=== PATIENT | female | born 1930 | race Caucasian/White ===

== ENCOUNTER 2020-03-29 20:15 | Emergency (ER) | payer MEDICARE, OTHER ==
[~2020-03-29] VITALS: Ht 157.5 cm; Wt 66.0 kg
[2020-03-29] MEDS ORDERED: XANAX0.5 MG PO (20:33)
[2020-03-29 21:03] LABS: HEMATOCRIT 39.4 % (37.0-47.0); HEMOGLOBIN 12.8 g/dl (12.0-16.0); IMMATURE GRANULOCYTES 0.6 % (0.0-5.0); MEAN CELL VOLUME 94.3 fL CALC (80.0-100.0); MEAN CORPUSCULAR HGB 30.6 pG CALC (26.0-32.0); MEAN CORPUSCULAR HGB CONC 32.5 g/dL CAL (32.0-36.0); NEUT# 6.02 thou/uL (2.00-7.15); RED BLOOD COUNT 4.18 mill/uL (4.20-5.60); RED CELL DISTRI WIDTH 13.2 % (11.5-15.5)
[2020-03-29 21:21] LABS: ALBUMIN 4.2 g/dL (3.2-5.0); ALKALINE PHOSPHATASE 64 u/l (38-126); ANION GAP 12 (6-22 (CALC)); BILIRUBIN, TOTAL 0.9 mg/dL (0.0-1.4); BUN 15 mg/dL (8-23); BUN/CREATININE RATIO 20 (12-20 (CALC)); CARBON DIOXIDE 26 mmol/l (22-30); CHLORIDE 106 mmol/l (95-108); CREATININE 0.8 mg/dL (0.5-1.0); GFR > 60 ML/MIN (>=60 (CALC)); GFR FOR AFR.AMER. > 60 ML/MIN (>=60 (CALC)); POTASSIUM 4.4 mmol/l (3.5-5.1); SGOT/AST 22 u/l (9-36); SODIUM 140 mmol/l (137-146); TOTAL PROTEIN 7.2 g/dL (6.3-8.2)
[2020-03-29 23:22] VITALS: BP 128/62
[2020-03-29] MEDS ORDERED: AMOXICILLIN500 MG PO (23:39)
== END 2020-03-29 23:51 | disposition home or self-care (01) ==
LOC: ED 20:15
PROVIDERS: Emergency Medicine
DX: R07.0 Pain in throat (principal)
CPT/HCPCS: Q9967

== ENCOUNTER 2020-07-26 14:45 | Observation (INO) | payer MEDICARE, OTHER ==
[~2020-07-26] VITALS: Ht 157.5 cm; Wt 75.0 kg
[~2020-07-26 14:45] MED LIST: AMOXICILLIN500 MG PO; XANAX0.5 MG PO
--- NOTE | 2020-07-26 14:55 | NUR ---
PT TO ROOM PER EMS WITH IV SITE. PT GOT UP OFF OF EMS STRETCHER AND WALKED TO ER STRETCHER, ALERT/ORIENTED X1, ONLY COMPLAINT IS RIGHT SHOULDER PAIN.
--- NOTE | 2020-07-26 14:56 | NUR ---
PT DENIES TAKING ANY MEDICATIONS EXCEPT XANAX, PARAMEDICS STATES THAT THE DAUGHTER STATED THAT WAS ALL SHE WAS ON
[2020-07-26 15:08] LABS: IMMATURE GRANULOCYTES 0.8 % (0.0-5.0); MEAN CELL VOLUME 96.2 fL CALC (80.0-100.0); MEAN CORPUSCULAR HGB 32.3 pG CALC (26.0-32.0); MEAN CORPUSCULAR HGB CONC 33.5 g/dL CAL (32.0-36.0); NEUT# 8.6 thou/uL (2.00-7.15); RED BLOOD COUNT 3.41 mill/uL (4.20-5.60); RED CELL DISTRI WIDTH 12.1 % (11.5-15.5)
[2020-07-26 15:09] LABS: HEMATOCRIT 32.8 % (37.0-47.0)
[2020-07-26 15:22] LABS: ALBUMIN 3.7 g/dL (3.2-5.0); ALKALINE PHOSPHATASE 55 u/l (38-126); AMYLASE 110 u/l (30-110); BILIRUBIN, TOTAL 1.2 mg/dL (0.0-1.4); BUN 15 mg/dL (8-23); BUN/CREATININE RATIO 21 (12-20 (CALC)); CARBON DIOXIDE 29 mmol/l (22-30); CREATININE 0.7 mg/dL (0.5-1.0); GFR > 60 ML/MIN (>=60 (CALC)); GFR FOR AFR.AMER. > 60 ML/MIN (>=60 (CALC)); LIPASE 65 u/l (23-300); POTASSIUM 4.2 mmol/l (3.5-5.1); SGOT/AST 22 u/l (9-36); TOTAL PROTEIN 6.5 g/dL (6.3-8.2)
[2020-07-26 15:26] LABS: ANION GAP 8 (6-22 (CALC)); CHLORIDE 91 mmol/l (95-108); SODIUM 124 mmol/l (137-146)
[2020-07-26 15:30] LABS: MYOGLOBIN 52 ng/mL (0 - 62)
--- NOTE | 2020-07-26 16:30 | NUR ---
ASSIST MD AT BEDSIDE FOR RECTAL EXAM.
--- NOTE | 2020-07-26 16:35 | NUR ---
COVID SWAB COLLECTED, ISOLATION PRECAUTIONS INITIATED.
[2020-07-26 17:20] LABS: URINE BILIRUBIN - DIPSTICK NEGATIVE (NEGATIVE); URINE BLOOD DIPSTICK NEGATIVE (NEGATIVE); URINE COLOR YELLOW; URINE GLUCOSE - DIPSTICK NEGATIVE (NEGATIVE); URINE KETONE NEGATIVE (NEGATIVE); URINE LEUK ESTERASE NEGATIVE (NEGATIVE); URINE PH 6.5 (4.5-8.0); URINE PROTEIN - DIPSTICK NEGATIVE (NEG-TRACE); URINE SPECIFIC GRAVITY 1.015; URINE UROBILINOGEN - DIPSTICK 0.2 E.U./dL (0.2)
[2020-07-26 17:24] LABS: URINE NITRITE - DIPSTICK NEGATIVE (Negative)
--- NOTE | 2020-07-26 17:56 | NUR ---
MD AT BEDSIDE TO DISCUSS RESULTS AND POC.
--- NOTE | 2020-07-26 18:50 | NUR ---
PHONE CALL TO MED SURG TO GIVE REPORT FOR ADMIT. ELIZABET DURAN WILL CALL BACK FOR REPORT.
--- NOTE | 2020-07-26 19:02 | NUR ---
REPORT CALLED TO RENEE ALEXANDER.
--- NOTE | 2020-07-26 19:13 | NUR ---
TO MED SURG VIA STRETCHER, TELE MONITOR IN PLACE.
--- NOTE | 2020-07-26 19:29 | NUR ---
PT RECEIVED FROM ED TO ROOM 270. ARRIVES VIA STRETCHER ACCOMPANIED BY LYNDA ALEXANDER. PT AMBULATORY TO BED. GAIT UNSTEADY. PT DENIES PAIN AT THIS TIME. ORIENTED TO UNIT, ROOM, CALL HERNANDEZ, LIGHTS, TV. ICE WATER PROVIDED. CALL HERNANDEZ WITHIN REACH. AGREES TO CALL PRN.
[2020-07-26 19:33] VITALS: BP 165/79
--- NOTE | 2020-07-26 20:12 | NUR ---
PHYSICAL ASSESMENT COMPLETE. PT C/O OF LOWER BACK PAIN. SCHEDULED MEDICATIONS AND PRN MEDICATION ADMINISTERED, SEE E-MAR. PT DENIES ANY NEEDS AT THIS TIME. PLAN OF CARE REVIEWED, PT DENIES QUESTIONS, VERBALIZES UNDERSTANDING. ITEMS WITHIN REACH, BED LOCKED IN LOW POSITION W/ BEDRAILS UP X2. CALL HERNANDEZ WITHIN REACH, AGREES TO CALL PRN.
[2020-07-27] VITALS: BP 109/53
--- NOTE | 2020-07-27 00:12 | NUR ---
PT LAYING IN BED WITH EYES CLOSED, APPEARS TO BE SLEEPING, APPEARS COMFORTABLE AND IN NO DISTRESS. RESPIRATIONS REGULAR AND UNLABORED. ITEMS REMAIN WITHIN REACH, CALL HERNANDEZ REMAINS WITHIN REACH. BED REMAINS LOCKED AND IN LOW POSITION WITH BEDRAILS UP X2. WILL CONTINUE TO MONITOR.
[2020-07-27 04:00] VITALS: BP 110/54
--- NOTE | 2020-07-27 04:11 | NUR ---
PT RESTING IN BED, NO SIGNS OF DISTRESS NOTED, RESP EVEN AND UNLABORED. PT VOICES NO NEEDS OR COMPLAINTS AT THIS TIME. CALL LIGHT IN REACH, CONTINUE TO MONITOR.
[2020-07-27 05:56] LABS: HEMATOCRIT 33.3 % (37.0-47.0); HEMOGLOBIN 10.9 g/dl (12.0-16.0); IMMATURE GRANULOCYTES 0.5 % (0.0-5.0); MEAN CELL VOLUME 97.1 fL CALC (80.0-100.0); MEAN CORPUSCULAR HGB 31.8 pG CALC (26.0-32.0); MEAN CORPUSCULAR HGB CONC 32.7 g/dL CAL (32.0-36.0); NEUT# 3.97 thou/uL (2.00-7.15); RED BLOOD COUNT 3.43 mill/uL (4.20-5.60); RED CELL DISTRI WIDTH 12.5 % (11.5-15.5)
[2020-07-27 06:19] LABS: ALBUMIN 3.4 g/dL (3.2-5.0); ALKALINE PHOSPHATASE 49 u/l (38-126); BILIRUBIN, TOTAL 1.3 mg/dL (0.0-1.4); BUN 12 mg/dL (8-23); BUN/CREATININE RATIO 16 (12-20 (CALC)); CARBON DIOXIDE 26 mmol/l (22-30); CREATININE 0.8 mg/dL (0.5-1.0); GFR > 60 ML/MIN (>=60 (CALC)); GFR FOR AFR.AMER. > 60 ML/MIN (>=60 (CALC)); POTASSIUM 4.2 mmol/l (3.5-5.1); SGOT/AST 21 u/l (9-36); TOTAL PROTEIN 6.2 g/dL (6.3-8.2)
[2020-07-27 06:20] LABS: ANION GAP 9 (6-22 (CALC)); CHLORIDE 106 mmol/l (95-108); SODIUM 137 mmol/l (137-146)
[2020-07-27 07:00] VITALS: BP 149/65
--- NOTE | 2020-07-27 07:00 | NUR ---
RECIEVED REPORT FROM BENJAMIN DURAN
--- NOTE | 2020-07-27 07:25 | NUR ---
PT RESTING IN SEMI FOWLERS POSITIONS. PT IS A/O TO SELF. ASSESSMENT AND VITALS COMPLETED. BP 146/65, HR 76, O2 100% ON ROOM AIR. RESPIRATIONS ARE EVEN AND UNLABORED WITH NO DISTRESS NOTED. LUNG SOUNDS ARE CLEAR. HEART RHYTHM IS NORMAL WITH TELE IN PLACE. #18G IN LFA INFUSING WITH IVF PER ORDER, SITE REMAINS HEALTHY AND PATENT. SKIN IS WARM AND INTACT. SCATTERED BRUISING NOTED THROUGHOUT. PT COMPLAINS OF 9/10 RIGHT SHOULDER PAIN, TYLENOL ADMINISTERED. PT REPOSITIONED IN BED FOR BREAKFAST. PT DENIES OF ANY OTHER NEEDS OR DISCOMFORTS AT THIS TIME. ALL SAEFTY PRECAUTIONS ARE IN PLACE WITH CALL LIGHT IN REACH AND BED ALARM ACTIVATED. WILL CONTINUE TO MONITOR.
--- NOTE | 2020-07-27 08:50 | NUR ---
DR TOM PARRA,MATIAS AT BEDSIDE.
--- NOTE | 2020-07-27 09:10 | NUR ---
#18G IN LAC INFILTRATED, IV REMOVED WITH CATHATER STILL INTACT. NOTIFIED. NO NEED FOR NEW IV DUE TO BEING D/C
[2020-07-27] MEDS ORDERED: PANTOPRAZOLE SO40 M1 PO (10:20)
[2020-07-27] MEDS ORDERED: ZOFRAN4 MG/TAB PO (10:21)
[2020-07-27 11:19] VITALS: BP 154/80
--- NOTE | 2020-07-27 11:38 | NUR ---
DAUGHTER CALLED TO INFORM OF DC. DAUGHTER TO ARRIVED TO EXPLAIN D/C INSTRUCTIONS.
--- NOTE | 2020-07-27 11:53 | NUR ---
PT SITTING UP ON SIDE OF BED EATING LUNCH. RESPIRARIONS ARE EVEN AND UNLABORED WITH NO DISTRESS NOTED. WAITING FOR DAUGHTER TO ARRIVED FOR D/C. TELE MONITORING REMOVED, ER NOTIFIED. PT DENIES OF ANY NEEDS AT THIS TIME. ALL SAFETY PRECAUTIONS ARE IN PLACE WITH BED ALARM ACTIVATED. INSTRUCTED PT TO CALL WHEN NEEDING TO GET UP. PT ERBLAIZED UNDERSTANDING.
--- NOTE | 2020-07-27 12:05 | NUR ---
PT AND DAUGHTER EDUCATED ON DISCHARGE INSTRUCTIONS. BOTH VERBALIZED UNDERSTANDING.
--- NOTE | 2020-07-27 12:27 | NUR ---
Discharge instructions given. Patient verbalizes understanding of same. Discharged in stable condition via Wheelchair to Home with family. All belongings sent with pt. PT DISCHARGED HOME IN STABLE CONDITION ACCOMPAINED BY STAFF AND DAUGHTER. PT DISCHARGED WITH ALL DISCHARGE INSTRUCTIONS AND BELONGINGS.
== END 2020-07-27 12:28 | disposition home or self-care (01) ==
LOC: ED 14:45 → ED-I 15:12 → ED 15:12 → ED-I 17:45 → ED 17:57 → MS2 17:58
PROVIDERS: Emergency Medicine; ADMIT Internal Medicine; ATTEND Internal Medicine
DX: E87.1 Hypo-osmolality and hyponatremia (principal); R11.2 Nausea with vomiting, unspecified; F41.9 Anxiety disorder, unspecified; F03.90 Unspecified dementia, unspecified severity, without behavioral disturbance, psychotic disturbance, mood disturbance, and anxiety; Z20.822 Contact with and (suspected) exposure to COVID-19
CPT/HCPCS: G0378; J1650; S0164

== ENCOUNTER 2020-08-15 09:10 | Inpatient (IN) | payer MEDICARE, OTHER ==
[~2020-08-15 09:10] MED LIST changes: +PANTOPRAZOLE SO40 M1 PO; +ZOFRAN4 MG/TAB PO
--- NOTE | 2020-08-15 09:20 | NUR ---
AMS FOR PAST 2 DAYS AFTER FALL. PATIENT IMMEDICATELY TO ROOM THEN TO RADIOLOGY. MD AT BEDSIDE FOR EVAL
[2020-08-15 09:52] LABS: GFR > 60 ML/MIN (>=60 (CALC)); GFR FOR AFR.AMER. > 60 ML/MIN (>=60 (CALC))
[2020-08-15 09:56] LABS: HEMATOCRIT 29.8 % (37.0-47.0); HEMOGLOBIN 9.7 g/dl (12.0-16.0); IMMATURE GRANULOCYTES 1.5 % (0.0-5.0); MEAN CORPUSCULAR HGB 32.2 pG CALC (26.0-32.0); MEAN CORPUSCULAR HGB CONC 32.6 g/dL CAL (32.0-36.0); NEUT# 8.07 thou/uL (2.00-7.15); RED BLOOD COUNT 3.01 mill/uL (4.20-5.60); RED CELL DISTRI WIDTH 13.6 % (11.5-15.5)
--- NOTE | 2020-08-15 10:08 | NUR ---
ASKED PHARMACY FOR HELP WITH MMED RED
[2020-08-15 10:17] LABS: ALBUMIN 3.3 g/dL (3.2-5.0); ALKALINE PHOSPHATASE 60 u/l (38-126); ANION GAP 9 (6-22 (CALC)); BILIRUBIN, TOTAL 1.3 mg/dL (0.0-1.4); BUN 19 mg/dL (8-23); BUN/CREATININE RATIO 35 (12-20 (CALC)); CARBON DIOXIDE 31 mmol/l (22-30); CHLORIDE 97 mmol/l (95-108); CREATININE 0.5 mg/dL (0.5-1.0); GFR > 60 ML/MIN (>=60 (CALC)); GFR FOR AFR.AMER. > 60 ML/MIN (>=60 (CALC)); POTASSIUM 4.7 mmol/l (3.5-5.1); SGOT/AST 20 u/l (9-36); SODIUM 132 mmol/l (137-146); TOTAL PROTEIN 6.2 g/dL (6.3-8.2)
[2020-08-15] MEDS ORDERED: ALBUTEROL2.5 MG/0.1 IN (11:12)
[2020-08-15] MEDS ORDERED: PULMICORT0.5MG/2ML IN (11:13)
[2020-08-15] MEDS ORDERED: ASPIRIN CHEWABL81 MG PO (11:13)
[2020-08-15] MEDS ORDERED: DILTIAZEM CD180 MG PO (11:14)
[2020-08-15] MEDS ORDERED: DULCOLAX10 MG RE (11:15)
[2020-08-15] MEDS ORDERED: CORRECTOL100 MG PO (11:15)
--- NOTE | 2020-08-15 11:15 | NUR ---
COVID SWAB COLLECTED, ISOLATION PRECAUTIONS INITIATED.
[2020-08-15] MEDS ORDERED: LOVENOX40 MG/0.4 SC (11:16)
[2020-08-15] MEDS ORDERED: FLUOXETINE10 MG PO (11:16)
[2020-08-15] MEDS ORDERED: LOPRESSOR50 M2 PO (11:18)
[2020-08-15] MEDS ORDERED: MICONAZOLE23 TOP (11:19)
[2020-08-15] MEDS ORDERED: MILK OF MAGNESI1 SUS PO (11:20)
[2020-08-15] MEDS ORDERED: PEG 3350 PO (11:21)
[2020-08-15] MEDS ORDERED: TRAMADOL HYDROC50 MG PO (11:22)
[2020-08-15] MEDS ORDERED: TYLENOL325 M2 PO (11:24)
[2020-08-15] MEDS ORDERED: ONDANSETRON4 MG PO (11:24)
[2020-08-15] MEDS ORDERED: PROTONIX40 M2 PO (11:31)
[2020-08-15 12:13] LABS: URINE BILIRUBIN - DIPSTICK NEGATIVE (NEGATIVE); URINE BLOOD DIPSTICK NEGATIVE (NEGATIVE); URINE COLOR YELLOW; URINE GLUCOSE - DIPSTICK NEGATIVE (NEGATIVE); URINE KETONE NEGATIVE (NEGATIVE); URINE LEUK ESTERASE TRACE (NEGATIVE); URINE PROTEIN - DIPSTICK NEGATIVE (NEG-TRACE); URINE UROBILINOGEN - DIPSTICK 0.2 E.U./dL (0.2)
[2020-08-15 12:15] LABS: URINE NITRITE - DIPSTICK NEGATIVE (Negative)
--- NOTE | 2020-08-15 12:18 | NUR ---
RESTING QUIETLY ON STRETCHER, RESPS EVEN AND UNLABORED ON O2 VIA NC. ROLLE DRAINING CLEAR YELLOW URINE, LEG STRAP IN PLACE. #20 LFA INFUSING WITHOUT DIFFICULTY, SITE APPEARS HEALTHY WITHOUT REDNESS OR EDEMA.
--- NOTE | 2020-08-15 13:31 | NUR ---
MOUTH SWABBED FOR MOISTURE REPLACEMENT AND CLEANED FOOD PARTICLE, DAUGHTER AT THE BEDSIDE AND PATIENT ALERT AND REPORTS COMFORT
--- NOTE | 2020-08-15 15:30 | NUR ---
REPORT RECEIVED FROM BROCKRN
--- NOTE | 2020-08-15 15:31 | NUR ---
REPORT CALLED TO SANTO VIZCAINO
--- NOTE | 2020-08-15 15:45 | NUR ---
PT ARRIVED TO MED/SURG ROOM 260 IN STABLE CONDITION VIA STRETCHER ACCOMPANIED BY BROCKRN;PT ASSISTED BEDSIDE WITH X4 ASSIST;PT ALERT TO SELF ONLY, ATTEMPTS TO RE-ORIENT UNSUCCESSFUL;PT UNABLE TO ASSIST IN ASSESSMENT R/T COGNITIVE LIMITATION, MOST INFORMATION PROVIDED BY DAUGHTER TYREE. VS OBTAINED AND ASSESSMENT COMPLETED;PT REPORTS PAIN WITH MOVEMENT,PAIN SCALE AND REPORTING EDUCATED;RESPIRATIONS EVEN AND UNLABORED ON O2 @ 3L VIA NC;ABDOMEN DISTENDED/SOFT ON PALPATION AND HYPOACTIVE IN ALL 4 QUADRANTS,PT HAD SMALL PASTY/BROWN BM UPON ARRIVAL AND GERARDO CARE WAS PROVIDED;WEAK PEDAL PULSES;MUTILPLE BRUISES NOTED THROUGHOUT BODY AND HEMATOMA NOTED TO POSTERIOR RIGHT SCALP;DRESSING TO RIGHT HIP NOTED FROM HIP REPLACEMENT ON 08/04;ROLLE CATHETER PATENT DRAINING CLEAR/YELLOW URINE TO GRAVITY WITH EASE,ROLLE PLACED 08/12/20 PER FAMILY AT REHAB R/T RETENTION;TELE MONITORING IN PLACE;FALL AND ALLERGY BAND APPLIED;#20G TO LAC FLUSHED AND PATENT,SITE APPEARS HEALTHY; PT DENIES ANY ADDITIONAL NEEDS AT THIS TIME AND IS ENCOURAGED TO CALL FOR ASSISTANCE IF NEEDED;FALL PRECAUTIONS IN PLACE WITH BED IN THE LOWEST POSITION AND BED ALARM ON FOR SAFETY;CALL LIGHT IN REACH;WILL CONTINUE TO MONITOR
--- NOTE | 2020-08-15 15:45 | NUR ---
TO MED SURG VIA STRETCHER. TELE MONITOR IN PLACE.
[2020-08-15 16:07] VITALS: BP 164/57
--- NOTE | 2020-08-15 16:45 | NUR ---
DAUGHTER AT BEDSIDE
--- NOTE | 2020-08-15 17:20 | NUR ---
PT RESTING IN BED WITH DAUGHTER AT BEDSIDE.PT MEDICATED WITH PRN MIRLAX AND MOM AT THIS TIME TO ASSIST IN BOWEL CARE;PT DENIES ANY CURRENT PAIN OR DISCOMFORTS,PAIN SCALE AND REPORTING EDUCATED;TELE MONITORING IN PLACE;IV SITE PATENT;FALL PRECAUTIONS IN PLACE WITH BED IN THE LOWEST POSITION AND CALL LIGHT IN REACH;WILL CONTINUE TO MONITOR
[2020-08-15 19:00] VITALS: BP 131/64
--- NOTE | 2020-08-15 20:01 | NUR ---
PHYSICAL ASSESMENT COMPLETE. PT C/O PAIN AND DISCOMFORT. SCHEDULED MEDICATIONS AND PRN MEDICATION ADMINISTERED, SEE E-MAR. PT DENIES ANY NEEDS AT THIS TIME. PLAN OF CARE REVIEWED, PT DENIES QUESTIONS, VERBALIZES UNDERSTANDING. ITEMS WITHIN REACH, BED LOCKED IN LOW POSITION W/ BEDRAILS UP X2. CALL HERNANDEZ WITHIN REACH, AGREES TO CALL PRN.
[2020-08-16] VITALS: BP 126/57
[2020-08-16 04:00] VITALS: BP 148/69
--- NOTE | 2020-08-16 04:00 | NUR ---
PT RESTING IN BED, NO SIGNS OF DISTRESS NOTED, RESP EVEN AND UNLABORED. PT C/O OF MILD PAIN AT THIS TIME. WILL ADMINISTER PRN MEDICATION. CALL LIGHT IN REACH, CONTINUE TO MONITOR.
[2020-08-16 05:44] LABS: HEMATOCRIT 30.5 % (37.0-47.0); HEMOGLOBIN 9.6 g/dl (12.0-16.0); MEAN CORPUSCULAR HGB 31.2 pG CALC (26.0-32.0); MEAN CORPUSCULAR HGB CONC 31.5 g/dL CAL (32.0-36.0); RED BLOOD COUNT 3.08 mill/uL (4.20-5.60); RED CELL DISTRI WIDTH 13.4 % (11.5-15.5)
[2020-08-16 06:03] LABS: ANION GAP 9 (6-22 (CALC)); BUN 17 mg/dL (8-23); BUN/CREATININE RATIO 29 (12-20 (CALC)); CARBON DIOXIDE 30 mmol/l (22-30); CHLORIDE 97 mmol/l (95-108); CREATININE 0.6 mg/dL (0.5-1.0); GFR > 60 ML/MIN (>=60 (CALC)); GFR FOR AFR.AMER. > 60 ML/MIN (>=60 (CALC)); MAGNESIUM 2.3 mg/dL (1.6-2.3); POTASSIUM 4.7 mmol/l (3.5-5.1); SODIUM 132 mmol/l (137-146)
[2020-08-16 07:00] VITALS: BP 153/70
--- NOTE | 2020-08-16 07:15 | NUR ---
PATIENT LAYING IN BED AT THIS TIME ALERT TO SELF. FLIGHT CREW SCHEDULER DONE SEE INTERVENTIONS. PATIENT EXHIBITS HEMATOM ON RIGHT BACK OF THE HEAD AND IS MODERATE IN SIZE. PATIENT ALSO EXHIBITS RIGHT HIP SURGICAL SITE WITH DRESSING INTACT AND PATIENT ALSO EXHIBIT BRUISE TO RIGHT UPPER ARM. ALL ABOVE WHERE NOTED AT ADMISSION FROM PREVIOUS FALL PRIOR TO ADMISSION. PATIENT IS ONLY ALER TO SELF BUT WHEN ASKED ABOUT PAIN AND PAIN SCALE SHE STATED "1". ROLLE INTACT AND DRAINING YELLOW URINE AT THIS TIME. SIDERAILS ARE UP X 3 AND BED ALARM ON FOR SAFTEY CALL LIGHT AND PERSONAL ITEMS WIHTIN REACH.
--- NOTE | 2020-08-16 07:17 | NUR ---
PATIENT FOUND ON THE FLOOR WITH STAFF. STAFF SOURAV MARTINEZ STATES THAT WAS ASSISTING PATIENT TO THE BSC WHEN THE PATIENT WAS LOWERED DOWN TO THE FLOOR FOR PATIENT SAFETY. MAX ASSIST OF SEVERAL STAFF MEMBERS TO PLACE PATIENT BACK INTO BED. PATIENT IS TEARFUL AND APOLOGIZING FOR NOT BEING ABLE TO STAND. PATIENT S/P CVA WITH LEFT HEMIPLEGIA/WEAKNESS. DENIES ANY PAIN AT THIS TIME. VS TAKEN-155/98, HR-99, O2 SAT-95%. REPORT GIVEN TO [facility]SCAFT NURSE PATRICK VIZCAINO. WILL CONT TO MONITOR.
[2020-08-16 10:30] VITALS: BP 146/68
--- NOTE | 2020-08-16 11:23 | NUR ---
PATIENT GIVEN A COMPLETE BED BATH AT THIS TIME MOUTH CARE GIVEN ROLLE CARE GIVEN BEDSHEETS AND GOWN CHANGED AT THIS TIME WITH THE ASSISTANCE OF VIRI ALEXANDER AND THIS NURSE.
--- NOTE | 2020-08-16 11:29 | NUR ---
BARRIER CREAM APPLIED TO BUTTOCKS AND LOTION APPLIED TO SKIN AFTER BEDBATH. 2000 ML EMPTIED FROM ROLLE AT THIS TIME. SIDERAILS ARE UP CALL LIGHT IS WITHIN REACH.
--- NOTE | 2020-08-16 11:44 | NUR ---
SPOKE TO PROVIDER QUITA BAKER APRN AT THIS TIME REGARDING HIP DRESSING CHANGE AND PROVIDER STATED TO LEAVE CURRENT DRESSING ON AT THIS TIME UNTIL FUTHER NOTICE.
[2020-08-16 15:40] VITALS: BP 117/64
--- NOTE | 2020-08-16 16:00 | NUR ---
PATIENT RESTING IN BED AT THIS TIME. SIDERAILS REMAIN UP CALL LIGHT WITHIN REACH ROLLE PATENT AND DRAINING AT THIS TIME.
--- NOTE | 2020-08-16 16:28 | NUR ---
PATIENT GIVEN 50MG OF ULTRAM AT THIS TIME FOR PAIN ALL OVER. PATIENT STATED HER PAIN IS A 5 OUT OF PAIN SCALE OF 0-10. DAUGHTER AT BEDSIDE AT THIS TIME. WILL CONTINUE TO MONITOR.
--- NOTE | 2020-08-16 16:57 | NUR ---
PATIENT STATES HER PAIN IS NOW A 2. PHYSICAL THEARPY IN TO SEE PATIENT.
[2020-08-16 19:00] VITALS: BP 139/61
--- NOTE | 2020-08-16 19:51 | NUR ---
CALL RECEIVED FROM PT'S DAUGHTER, SHE EXPRESSES CONCERNS OVER PT'S CONFUSION WHILE BEING ON PHONE WITH PT'S OTHER DAUGHTER. PT FOUND TO BE LAYING IN BED SEMIFOWLERS TALKING ON PHONE. COMPLAINS OF R-SHOULDER PAIN AND DRY MOUTH. UPDATE PROVIDED TO PT'S DAUGHTER.
--- NOTE | 2020-08-16 20:00 | NUR ---
ORAL CARE DONE AND MOUTH SWABS PROVIDED FOR DRY MOUTH BY Brandon MELENDEZ CNA.
--- NOTE | 2020-08-16 20:30 | NUR ---
PHYSICAL ASSESMENT COMPLETED. PT LAYING IN BED, SEMIFOWLERS. PT BOOSTED UP HIGHER IN BED AND SAT UP TO HIGH FOWLERS. 02 AT 3L/MIN VIA NC. RESPIRATIONS REGULAR AND UNLBORED. PT REPORTS DRY MOUTH AND R-SHOULDER PAIN, VOICES NO FURTHER COMPLAINTS. ROLLE IN PLACE, SECURED, UNKINKED AND UNOBSTRUCTED. SCHEDULED MEDICATIONS ADMINISTERED WITH PRN ULTRAM AND APAP FOR C/O SHOULDER PAIN. SEE E-MAR. PT TOLERATES PO MEDS WHOLE WITH WATER. PO INTAKE ENCOURAGED FOR DRY MOUTH. R-HIP DRESING C/D/I. MULTIPLE SCATTERED BRUISES ON BODY. BELONGINGS WITHIN REACH, CALL HERNANDEZ WITHIN REACH, AGREES TO CALL PRN. BED LOCKED IN LOW POSITION WITH BEDRAILS UP X2 AND BED ALARM ON.
[2020-08-17] VITALS (7 sets, daily range): BP systolic 111–141; BP diastolic 53–74
--- NOTE | 2020-08-17 | NUR ---
PT LAYING IN BED WITH EYES CLOSED, NO APPARENT DISTRESS, RESPIRATIONS REGULAR AND UNLABORED. APPEARS TO BE SLEEPING COMFORTABLY. CALL HERNANDEZ REMAINS WITHIN REACH.
--- NOTE | 2020-08-17 04:00 | NUR ---
ANSHU PANTS CUTTER IN ROOM TO DRAW AM LABS.
--- NOTE | 2020-08-17 04:56 | NUR ---
PT ASSISTED UP TO BSC BY Brandon MELENDEZ CNA, PARTIAL LINEN CHNAGE COMPLETED BY Brandon MELENDEZ CNA. Brandon MELENDEZ ASSIST PT TO RECLINER.
--- NOTE | 2020-08-17 05:40 | NUR ---
NEW IV SITE STARTED TO LAC X 1 SUCCESSFUL ATTEMPT. SITE FLUSHES WELL. PT TOLERATED WITHOUT COMPLAINT. WILL MONITOR
[2020-08-17 05:44] LABS: HEMATOCRIT 32.3 % (37.0-47.0); HEMOGLOBIN 10.5 g/dl (12.0-16.0); MEAN CELL VOLUME 95.8 fL CALC (80.0-100.0); MEAN CORPUSCULAR HGB 31.2 pG CALC (26.0-32.0); MEAN CORPUSCULAR HGB CONC 32.5 g/dL CAL (32.0-36.0); RED BLOOD COUNT 3.37 mill/uL (4.20-5.60); RED CELL DISTRI WIDTH 13.2 % (11.5-15.5)
[2020-08-17 06:09] LABS: ANION GAP 11 (6-22 (CALC)); BUN 19 mg/dL (8-23); BUN/CREATININE RATIO 34 (12-20 (CALC)); CARBON DIOXIDE 28 mmol/l (22-30); CHLORIDE 94 mmol/l (95-108); CREATININE 0.6 mg/dL (0.5-1.0); GFR > 60 ML/MIN (>=60 (CALC)); GFR FOR AFR.AMER. > 60 ML/MIN (>=60 (CALC)); POTASSIUM 4.4 mmol/l (3.5-5.1); SODIUM 128 mmol/l (137-146)
--- NOTE | 2020-08-17 07:01 | NUR ---
PT RESTING COMFORTABLY IN BEDSIDE CHAIR. NAD. VSS. SENIOR PRINCIPAL ARCHITECT TO MONITOR. BS=/DIM. NO INCREASE IN WOB.
--- NOTE | 2020-08-17 07:10 | NUR ---
PATIENT SITTING UP IN RECLINER AT THIS TIME. PATIENT DENIES ANY PAIN AND CHIEF COMMUNICATIONS OFFICER DONE, SEE INTERVENTIONS. R HIP DRESSING REMAINS INTACT, PATIENT EXHIBITS MULTIPLE HEALING BRUISING ON RT. SHOULDER AND SIDE, PATIENT STILL HAS HEMATOMA ON TOP OF RIGHT HEAD AND SWELLING IS REDUCING. ROLLE CATH REMAINS IN PLACE AND DRAINING CLEAR YELLOW URING AT THIS TIME. CALL LIGHT IS WITHIN REACH .
--- NOTE | 2020-08-17 08:01 | NUR ---
Blood culture results called to Dr Ly, 1/3 (1 of 2 sets) growing gram positive cocci. Likely contaminant. Will follow up with final tomorrow.
--- NOTE | 2020-08-17 11:26 | NUR ---
PATIENT SITTING UP IN CHAIR AT THIS TIME. DENIES ANY PAIN. WATCHING TV. CALL LIGHT IS WITHIN REACH.
--- NOTE | 2020-08-17 12:36 | NUR ---
PATIENT GIVEN 50MG PO TRAMADOL FOR GERNERALIZED PAIN AT THIS TIME. PATIENT RETURNED BACK TO BED FROM CHAIR. SCARAILS UP CALL LIGHT WITHIN REACH.
--- NOTE | 2020-08-17 16:04 | NUR ---
PATIENT IN BED AT THIS TIME RESTING WITH EYES CLOSED. RESPIRATIONS EASY AND UNLABORED AT THIS TIME. ROLLE PATENT AND DRAINING YELLOW URINE. SIDERAILS ARE UP X 2 CALL LIGHT AND PERSONAL ITEMS WITHIN REACH.
--- NOTE | 2020-08-17 16:57 | NUR ---
Patient did seated B LE exercises doing hip flexion, hip adduction and abduction, knee extension, hamstring curls, ankle AROM, and gluteal squeezes for 15 reps x 2 sets with constant muscle guarding (very concerned about aching sensation on the R shoulder when initiating exercises). Patient also tried to initiate sit to stand activity, pushing off from B UE, but due to the clicking sensation on the R shoulder with each attempt to get up from the chair, patient requested to stop activity after 2 to 3 reps for fear of exacerbation of muscle spasms (patient needed maximum to moderate assistance initiating activity).
--- NOTE | 2020-08-17 19:00 | NUR ---
REPORT RECEIVED FROM Geraldo COLUNGA RN. CARE OF PT ASSUMED AT THIS [facility].
--- NOTE | 2020-08-17 19:37 | NUR ---
PHYSICAL ASSESMENT COMPLETED. PT LAYING IN BED, SEMIFOWLERS. PT BOOSTED UP HIGHER IN BED AND SAT UP TO HIGH FOWLERS. 02 AT 3L/MIN VIA NC. RESPIRATIONS REGULAR AND UNLBORED. PT REPORTS DRY MOUTH AND R-SHOULDER PAIN, VOICES NO FURTHER COMPLAINTS. ROLLE IN PLACE, SECURED, UNKINKED AND UNOBSTRUCTED. SCHEDULED MEDICATIONS ADMINISTERED WITH PRN ULTRAM AND APAP FOR C/O SHOULDER PAIN. SEE E-MAR. PT TOLERATES PO MEDS WHOLE WITH WATER. PO INTAKE ENCOURAGED FOR DRY MOUTH. R-HIP DRESING C/D/I. MULTIPLE SCATTERED BRUISES ON BODY. BELONGINGS WITHIN REACH, CALL HRENANDEZ WITHIN REACH, AGREES TO CALL PRN. BED LOCKED IN LOW POSITION WITH BEDRAILS UP X2 AND BED ALARM ON.
--- NOTE | 2020-08-17 21:08 | NUR ---
PT DOWN TO CT VIA STRETCHER ACCOMPANIED Brandon MELENDEZ AND Sahe SMALLSA.
--- NOTE | 2020-08-17 21:23 | NUR ---
PT RETURNS FROM CT.
--- NOTE | 2020-08-18 | NUR ---
PT LAYING IN BED WITH EYES CLOSED, NO APPARENT DISTRESS, RESPIRATIONS REGULAR AND UNLABORED. APPEARS TO BE SLEEPING COMFORTABLY. CALL HERNANDEZ REMAINS WITHIN REACH.
--- NOTE | 2020-08-18 04:00 | NUR ---
SANDEEP, CHEMICAL EDUCATOR IN ROOM TO DRAW AM LABS.
[2020-08-18 04:15] VITALS: BP 113/51
[2020-08-18 06:41] LABS: HEMATOCRIT 30.5 % (37.0-47.0); MEAN CELL VOLUME 97.4 fL CALC (80.0-100.0); MEAN CORPUSCULAR HGB 31.9 pG CALC (26.0-32.0); MEAN CORPUSCULAR HGB CONC 32.8 g/dL CAL (32.0-36.0); RED BLOOD COUNT 3.13 mill/uL (4.20-5.60); RED CELL DISTRI WIDTH 13.6 % (11.5-15.5)
--- NOTE | 2020-08-18 07:00 | NUR ---
PT RESTING COMFORTABLY N BED. NAD. VSS. MARTHA NEB THERAPY WELL. AVIATION TECHNICIAN TO MONITOR.
[2020-08-18 07:04] LABS: ANION GAP 9 (6-22 (CALC)); BUN 22 mg/dL (8-23); BUN/CREATININE RATIO 38 (12-20 (CALC)); CARBON DIOXIDE 28 mmol/l (22-30); CHLORIDE 99 mmol/l (95-108); CREATININE 0.6 mg/dL (0.5-1.0); GFR > 60 ML/MIN (>=60 (CALC)); GFR FOR AFR.AMER. > 60 ML/MIN (>=60 (CALC)); MAGNESIUM 2.3 mg/dL (1.6-2.3); POTASSIUM 4.6 mmol/l (3.5-5.1); SODIUM 131 mmol/l (137-146)
[2020-08-18 07:09] VITALS: BP 130/63
--- NOTE | 2020-08-18 10:30 | NUR ---
PT SEEN AT REST IN THE BED, APPEARS FRAIL. LUNGS CLEAR, 2 LPM. SPEECH THERAPIST EVALUATED PT THIS MORNING, CHANGED TO MECHANICAL SOFT DIET. PT ORIENTED X 1-2.
[2020-08-18 10:33] VITALS: BP 114/52
--- NOTE | 2020-08-18 10:52 | NUR ---
Patient received in semi-ching sleeping in bed. Patient agreeable to therapy and pleasantly confused. Patient oriented to self. She is on 4L via nasal cannula. Patient given therapeutic PO trials of thin liquids, pureed, and soft solids for on-going assessment and treatment of the orophayrngeal swallow. She presented with a functional oropharyngeal swallow with pureed solids and thin liquids. With soft solids, patient presented with increased mastication time, mild lingual stasis, which cleared with a liquid wash, and multiple swallows per bolus presentation. Patient tolerated multiple trials of soft solids without s/s of penetration/aspiration. At this time recommend mechanical soft solids with moist ground meats, fruits, and vegetables. Aspiration precautions to include: HOB upright for PO intake, small bites and sips, alternate liquids and solids, oral care after meals, and remain upright after PO intake. Discussed with patient's RN, Wale.
[2020-08-18 14:40] VITALS: BP 109/49
--- NOTE | 2020-08-18 14:49 | NUR ---
CONSULT WITH DR JACKMAN TODAY, NO CHANGES HE BELIEVED POSITIVE BLOOD CULTURES WERE FROM CONTAMINATION. PT CONTINUES BEFORE, SLOW TO ANSWER AND SOMETIMES UNRELIABLE IN HER INFORMATION.
--- NOTE | 2020-08-18 18:01 | NUR ---
PT EATS SUPPER, APPEARS MORE AWAKE AND ALERT THAN EARLIER. PT ABLE TO FEED HERSELF. SON HAS CALLED EARLIER FOR UPDATE, PROVIDED.
[2020-08-18 19:44] VITALS: BP 118/58
--- NOTE | 2020-08-18 20:00 | NUR ---
PHYSICAL ASSESMENT COMPLETE. PT CURRENTLY DENIES PAIN OR DISCOMFORT. SCHEDULED MEDICATIONS AND PRN MEDICATION ADMINISTERED, SEE E-MAR. PT DENIES ANY NEEDS AT THIS TIME. PLAN OF CARE REVIEWED, PT DENIES QUESTIONS, VERBALIZES UNDERSTANDING. ITEMS WITHIN REACH, BED LOCKED IN LOW POSITION W/ BEDRAILS UP X2. CALL HERNANDEZ WITHIN REACH, AGREES TO CALL PRN.
[2020-08-19] VITALS (7 sets, daily range): BP systolic 134–158; BP diastolic 56–72
--- NOTE | 2020-08-19 00:39 | NUR ---
PTS IV HAS DISLODGED. CLEANED ARM OF BLOOD AND WILL PLACE NEW IV.
[2020-08-19 05:42] LABS: HEMATOCRIT 32.2 % (37.0-47.0); HEMOGLOBIN 10.3 g/dl (12.0-16.0); MEAN CELL VOLUME 98.5 fL CALC (80.0-100.0); MEAN CORPUSCULAR HGB 31.5 pG CALC (26.0-32.0); RED BLOOD COUNT 3.27 mill/uL (4.20-5.60); RED CELL DISTRI WIDTH 13.9 % (11.5-15.5)
[2020-08-19 07:14] LABS: ANION GAP 11 (6-22 (CALC)); BUN 18 mg/dL (8-23); BUN/CREATININE RATIO 34 (12-20 (CALC)); CARBON DIOXIDE 25 mmol/l (22-30); CHLORIDE 103 mmol/l (95-108); CREATININE 0.5 mg/dL (0.5-1.0); GFR > 60 ML/MIN (>=60 (CALC)); GFR FOR AFR.AMER. > 60 ML/MIN (>=60 (CALC)); MAGNESIUM 2.1 mg/dL (1.6-2.3); POTASSIUM 4.2 mmol/l (3.5-5.1); SODIUM 134 mmol/l (137-146)
--- NOTE | 2020-08-19 07:29 | NUR ---
PT RESTING COMFORTABLY IN BED. NAD. VSS. STAFF COMBAT INFORMATION CENTER OFFICER TO MONITOR.
--- NOTE | 2020-08-19 07:32 | NUR ---
AWARE OF FINAL BLOOD CULTURE RESULTS, CONSULTED. NO NEW ORDERS AT THIS TIME.
--- NOTE | 2020-08-19 08:12 | NUR ---
PT AWAKE, ALERT, ORIENTED X 1. PT BELIEVES THAT SHE IS IN [place]. LUNGS CLEAR, 2 LPM NC. SON IN LAW CALLED EARLIER FOR AN UPDATE, WILL PROVIDE THAT WHEN SOMETHING NEW IS KNOWN. RIGHT SHOULDER PAIN CONTINUES, RECENTLY MEDICATED.
[2020-08-19] MEDS ORDERED: OMNICEF300 MG PO (10:25)
--- NOTE | 2020-08-19 13:56 | NUR ---
PT RECENTLY SEEN CONFUSED, ON HER FEET IN THE ROOM WITH AIDE ATTEMPTING TO REDIRECT. SHE SAID THAT SHE WAS WAITING FOR HER DAUGHTER. PT WAS SETTLED IN THE CHAIR, WHERE SHE REMAINS.
--- NOTE | 2020-08-19 16:12 | NUR ---
PT UP IN CHAIR SEEN FIDGETY, PULLED OFF MONITOR AND OXYGEN, ALMOST ROLLE AND IV. SHE WAS PROVIDED BSC AND HAD LARGE BM. PT ASSISTED BACK TO BED THEN, WHERE SHE REMAINS.
--- NOTE | 2020-08-19 23:58 | NUR ---
PT LAYING IN BED WIDE AWAKE. PT IS CONFUSED AND AGITATED. PT TRYING TO REMOVE TELEMENTRY, ROLLE ANDIV. RESPIRATIONS REGULAR AND UNLABORED. ITEMS REMAIN WITHIN REACH, CALL HERNANDEZ REMAINS WITHIN REACH. BED REMAINS LOCKED AND IN LOW POSITION WITH BEDRAILS UP X2. WILL CONTINUE TO MONITOR.
[2020-08-20 03:01] VITALS: BP 148/65
--- NOTE | 2020-08-20 04:00 | NUR ---
PT RESTING IN BED, NO SIGNS OF DISTRESS NOTED, RESP EVEN AND UNLABORED. PT VOICES NO NEEDS OR COMPLAINTS AT THIS TIME. CALL LIGHT IN REACH, CONTINUE TO MONITOR.
[2020-08-20 05:23] LABS: ANION GAP 9 (6-22 (CALC)); BUN 19 mg/dL (8-23); BUN/CREATININE RATIO 37 (12-20 (CALC)); CARBON DIOXIDE 24 mmol/l (22-30); CHLORIDE 103 mmol/l (95-108); CREATININE 0.5 mg/dL (0.5-1.0); GFR > 60 ML/MIN (>=60 (CALC)); GFR FOR AFR.AMER. > 60 ML/MIN (>=60 (CALC)); MAGNESIUM 1.9 mg/dL (1.6-2.3); POTASSIUM 4.2 mmol/l (3.5-5.1); SODIUM 132 mmol/l (137-146)
[2020-08-20 07:11] VITALS: BP 138/66
--- NOTE | 2020-08-20 07:54 | NUR ---
PT OOB IN CHAIR AT THIS TIME FOR BREAKFAST. PT IS CONFUSED, ORIENTED X 1. NO DISTRESS NOTED. TRAMADOL PROVIDED FOR RIGHT SHOULDER PAIN.
--- NOTE | 2020-08-20 12:24 | NUR ---
PT HAS BEEN OOB IN THE CHAIR THIS MORNING. PT REMAINS CONFUSED BUT NOT FIDGETTY YESTERDAY. ANTICIPATE DISCHARGE TO REHAB THIS AFTERNOON.
[2020-08-20 13:34] VITALS: BP 120/50
--- NOTE | 2020-08-20 14:05 | NUR ---
PT HAS BEEN READIED FOR DISCHARGE TO [facility]. IV REMOVED, TELEMETRY REMOVED, PT DRESSED IN HER CLOTHES, NOW WAITING ON [facility] PERSONNEL TO ARRIVE. DAUGHTER VERBALIZES UNDERSTANDING OF DC INSTRUCTIONS, WHICH WERE ADDED TO PACKET. PT REMAINS IN STABLE CONDITION. MENTATION TODAY GOOD, ABLE TO HOLD CONVERSATION.
--- NOTE | 2020-08-20 14:47 | NUR ---
PT LEAVES AT THIS TIME FOR [facility]. DAUGHTER TYREE ACCOMPANIES DHR QUALITY TECHNICIAN FIBERGLASS IN TAKING HER THERE. PT LEAVES [facility] IN STABLE CONDITION, CONTINUES WITH SOME CONFUSION. CONDITION STABLE.
== END 2020-08-20 14:47 | DRG 194 ==
LOC: ED 09:10 → ED-I 10:28 → ED 10:28 → ED-I 13:36 → ED 13:55 → MS2 13:56
PROVIDERS: Family Medicine; Nurse Practitioner; ADMIT Internal Medicine; ATTEND Internal Medicine
DX: J18.9 Pneumonia, unspecified organism (principal); S22.050A Wedge compression fracture of T5-T6 vertebra, initial encounter for closed fracture; G96.08 Other cranial cerebrospinal fluid leak; E87.1 Hypo-osmolality and hyponatremia; S00.03XA Contusion of scalp, initial encounter; F41.9 Anxiety disorder, unspecified; F03.90 Unspecified dementia, unspecified severity, without behavioral disturbance, psychotic disturbance, mood disturbance, and anxiety; K56.41 Fecal impaction; M75.101 Unspecified rotator cuff tear or rupture of right shoulder, not specified as traumatic; W19.XXXA Unspecified fall, initial encounter; Y92.239 Unspecified place in hospital as the place of occurrence of the external cause; Z96.641 Presence of right artificial hip joint; Z20.822 Contact with and (suspected) exposure to COVID-19
CPT/HCPCS: G0378; J1650; J7626; Q3014; Q9967

== ENCOUNTER 2021-04-19 07:06 | Emergency (ER) | payer MEDICARE, OTHER ==
[~2021-04-19] VITALS: Ht 157.5 cm; Wt 72.7 kg
[~2021-04-19 07:06] MED LIST changes: +ALBUTEROL2.5 MG/0.1 IN; +ASPIRIN CHEWABL81 MG PO; +BANOPHEN25 M1 PO; +BUSPIRONE10 MG PO; +CORRECTOL100 MG PO; +CVS MELATONIN PO; +DILTIAZEM HCL120 M1 PO; +DULCOLAX10 MG RE; +FLEXERIL5 M1 PO; +FLUOXETINE10 MG PO; +FUROSEMIDE20 MG PO; +LOPRESSOR25 MG PO; +LOVENOX40 MG/0.4 SC; +MEDROL DOSEPAK4 MG PO; +MICONAZOLE23 TOP; +MILK OF MAGNESI1 SUS PO; +OMNICEF300 MG PO; +ONDANSETRON4 MG PO; +PEG 3350 PO; +PROTONIX40 M2 PO; +PULMICORT0.5MG/2ML IN; +TORADOL PO; +TRAMADOL HYDROC50 MG PO; +TRAZODONE100 MG PO; +TYLENOL325 M2 PO
[2021-04-19 07:43] LABS: HEMATOCRIT 39.2 % (37.0-47.0); HEMOGLOBIN 12.5 g/dl (12.0-16.0); IMMATURE GRANULOCYTES 1.3 % (0.0-5.0); MEAN CORPUSCULAR HGB 30.9 pG CALC (26.0-32.0); MEAN CORPUSCULAR HGB CONC 31.9 g/dL CAL (32.0-36.0); NEUT# 3.71 thou/uL (2.00-7.15); RED BLOOD COUNT 4.04 mill/uL (4.20-5.60); RED CELL DISTRI WIDTH 12.6 % (11.5-15.5)
[2021-04-19 07:54] LABS: ALBUMIN 3.8 g/dL (3.2-5.0); ALKALINE PHOSPHATASE 74 u/l (38-126); ANION GAP 9 (6-22 (CALC)); BUN 18 mg/dL (8-23); BUN/CREATININE RATIO 19 (12-20 (CALC)); CARBON DIOXIDE 32 mmol/l (22-30); CHLORIDE 102 mmol/l (95-108); CREATININE 0.9 mg/dL (0.5-1.0); GFR 59 ML/MIN (>=60 (CALC)); GFR FOR AFR.AMER. > 60 ML/MIN (>=60 (CALC)); POTASSIUM 4.1 mmol/l (3.5-5.1); SGOT/AST 19 u/l (9-36); SODIUM 139 mmol/l (137-146); TOTAL PROTEIN 7.3 g/dL (6.3-8.2)
[2021-04-19 09:20] VITALS: BP 169/74
== END 2021-04-19 09:59 | disposition home or self-care (01) ==
LOC: ED 07:06
PROVIDERS: Family Medicine
DX: S00.11XA Contusion of right eyelid and periocular area, initial encounter (principal); I10 Essential (primary) hypertension; E66.9 Obesity, unspecified; F41.9 Anxiety disorder, unspecified; F03.90 Unspecified dementia, unspecified severity, without behavioral disturbance, psychotic disturbance, mood disturbance, and anxiety; I48.91 Unspecified atrial fibrillation; W01.0XXA Fall on same level from slipping, tripping and stumbling without subsequent striking against object, initial encounter; Y92.099 Unspecified place in other non-institutional residence as the place of occurrence of the external cause; Z68.29 Body mass index [BMI] 29.0-29.9, adult

== ENCOUNTER 2021-05-13 18:16 | Emergency (ER) | payer MEDICARE, OTHER ==
[~2021-05-13] VITALS: Ht 157.5 cm; Wt 67.0 kg
[2021-05-13] MEDS ORDERED: ULTRAM50 M1 PO (20:03)
[2021-05-13 20:25] VITALS: BP 130/74
== END 2021-05-13 21:07 ==
LOC: ED 18:16
DX: M25.512 Pain in left shoulder (principal); M25.511 Pain in right shoulder; M19.011 Primary osteoarthritis, right shoulder; F41.9 Anxiety disorder, unspecified; F03.90 Unspecified dementia, unspecified severity, without behavioral disturbance, psychotic disturbance, mood disturbance, and anxiety; I48.91 Unspecified atrial fibrillation; W18.30XA Fall on same level, unspecified, initial encounter; Y92.099 Unspecified place in other non-institutional residence as the place of occurrence of the external cause

== ENCOUNTER 2021-06-09 14:26 | Observation (INO) | payer MEDICARE, OTHER ==
[~2021-06-09] VITALS: Ht 157.5 cm; Wt 71.0 kg
[~2021-06-09 14:26] MED LIST changes: +ACETAMINOPHEN325 MG PO; -ALBUTEROL2.5 MG/0.1 IN; -ASPIRIN CHEWABL81 MG PO; +ASPIRIN EC LOW81 MG PO; +BUDESONID2 IN; -CORRECTOL100 MG PO; -DILTIAZEM HCL120 M1 PO; +DILTIAZEM HCL180 MG PO; +DOK100 M1 PO; -FLUOXETINE10 MG PO; +FLUOXETINE20 MG PO; +PROVENTIL0.083 % IN; -PULMICORT0.5MG/2ML IN; -TYLENOL325 M2 PO; +ULTRAM50 M1 PO
--- NOTE | 2021-06-09 15:30 | NUR ---
URINE SAMPLE COLLECTED VIA STRAIGHT CATH. PT TOLERATED WELL.
[2021-06-09 15:35] LABS: HEMATOCRIT 35.8 % (37.0-47.0); HEMOGLOBIN 11.8 g/dl (12.0-16.0); IMMATURE GRANULOCYTES 0.3 % (0.0-5.0); MEAN CORPUSCULAR HGB 31.3 pG CALC (26.0-32.0); NEUT# 4.15 thou/uL (2.00-7.15); RED BLOOD COUNT 3.77 mill/uL (4.20-5.60); RED CELL DISTRI WIDTH 12.4 % (11.5-15.5)
--- NOTE | 2021-06-09 15:39 | NUR ---
PT PLACED ON OXYGEN 2L/MIN VIA NC TO MAINTAIN OXYGEN SATURATIONS ABOVE 90% PT STABLE AT THIS TIME, DAUGHTER AT THE BEDSIDE.
[2021-06-09 15:43] LABS: GFR > 60 ML/MIN (>=60 (CALC)); GFR FOR AFR.AMER. > 60 ML/MIN (>=60 (CALC))
[2021-06-09 15:56] LABS: INTERNATIONAL NORMALIZED RATIO 0.9 RATIO (0.7-1.3); PROTHROMBIN TIME 9.9 SECONDS (9.0-12.5)
[2021-06-09 16:00] LABS: ALBUMIN 3.4 g/dL (3.2-5.0); ALKALINE PHOSPHATASE 76 u/l (38-126); ANION GAP 13 (6-22 (CALC)); BILIRUBIN, TOTAL 0.5 mg/dL (0.0-1.4); BUN 15 mg/dL (8-23); BUN/CREATININE RATIO 19 (12-20 (CALC)); CHLORIDE 101 mmol/l (95-108); CREATININE 0.8 mg/dL (0.5-1.0); GFR > 60 ML/MIN (>=60 (CALC)); GFR FOR AFR.AMER. > 60 ML/MIN (>=60 (CALC)); POTASSIUM 4.2 mmol/l (3.5-5.1); SGOT/AST 18 u/l (9-36); SODIUM 138 mmol/l (137-146); TOTAL PROTEIN 6.5 g/dL (6.3-8.2)
[2021-06-09 16:06] LABS: CARBON DIOXIDE 28 mmol/l (22-30)
--- NOTE | 2021-06-09 16:35 | NUR ---
PT STABLE AT THIS TIME, DAUGHTER AT THE BEDSIDE. PT'S SPEECH CLEAR, BUT SPEAKING NONSENSICAL. PT PLEASANT AND CALM. WILL CONTINUE TO MONITOR.
--- NOTE | 2021-06-09 17:35 | NUR ---
PT PLACED ON BED CASTAÑEDA TO URINATE.
[2021-06-09 17:38] LABS: URINE BILIRUBIN - DIPSTICK NEGATIVE (NEGATIVE); URINE BLOOD DIPSTICK TRACE-INTACT (NEGATIVE); URINE COLOR YELLOW; URINE GLUCOSE - DIPSTICK NEGATIVE (NEGATIVE); URINE KETONE NEGATIVE (NEGATIVE); URINE LEUK ESTERASE MODERATE (NEGATIVE); URINE NITRITE - DIPSTICK NEGATIVE (Negative); URINE PROTEIN - DIPSTICK NEGATIVE (NEG-TRACE); URINE UROBILINOGEN - DIPSTICK 0.2 E.U./dL (0.2)
[2021-06-09 17:40] LABS: URINE RBC 0-2 RBC/hpf (0-5); URINE SQUAMOUS EPITHELIAL CELL FEW EPI/hpf (0-FEW); URINE TRANSITIONAL EPI. CELLS RARE hpf
--- NOTE | 2021-06-09 18:00 | NUR ---
PT ASSISTED ON AND OFF THE BEDPAN. PT WITH GOOD AMOUNT OF URINE OUT. PT STABLE.
--- NOTE | 2021-06-09 18:35 | NUR ---
PT'S DAUGHTER AWARE OF ADMISSION FOR FURTHER TESTING. PT REMAINS STABLE. SKIN PWD, BREATHING UNLABORED ON 2L OXYGEN VIA NC.
[2021-06-09 18:54] LABS: ALBUMIN 3.5 g/dL (3.2-5.0); ALKALINE PHOSPHATASE 79 u/l (38-126); BILIRUBIN, TOTAL 0.5 mg/dL (0.0-1.4); C-REACTIVE PROTEIN 0.7 mg/dL (0-0.9); HDL CHOLESTEROL 40 mg/dL (>=40); MAGNESIUM 1.9 mg/dL (1.6-2.3); SGOT/AST 19 u/l (9-36); TOTAL CHOLESTEROL 202 mg/dl (0-199); TOTAL PROTEIN 6.5 g/dL (6.3-8.2)
[2021-06-09 18:57] LABS: CALCULATED LDLCHOLESTEROL 135 mg/dL (62-129 (CALC)); TOTAL TRIGLYCERIDES 135 mg/dl (30-149); VLDL CHOLESTROL 27 mg/dl (0-48 (CALC))
--- NOTE | 2021-06-09 19:20 | NUR ---
PT'S IV DISLODGED-BENJAMIN DALLAS AWARE AND WILL REPLACE. REPORT GIVEN TO BENJAMIN DALLAS FOR TRANSITION OF CARE.
--- NOTE | 2021-06-09 19:39 | NUR ---
DAISYAR SENT TO M/S
--- NOTE | 2021-06-09 20:00 | NUR ---
PT REPOSITIONED AND LINENS CHANGED PURE WICK PLACED FOR COMFORT, DAUGHTER AT BEDSIDE
--- NOTE | 2021-06-09 21:13 | NUR ---
ROOM ASSIGNMENT REC'D DAUGHTER AWARE OF PENDING TRASNFER UPSTAIRS
--- NOTE | 2021-06-09 21:54 | NUR ---
REPORT CALLED TO ROMAN VIZCAINO, DAUGHTER AWARE OF ADMISSION PLANS WILL CALL AND CHECK IN AM.
--- NOTE | 2021-06-09 21:54 | NUR ---
RECIEVED REPORT FROM BENJAMIN DALLAS
--- NOTE | 2021-06-09 22:01 | NUR ---
PT ARRIVED TO [facility] ROOM 271 [facility] ACCOMPSHARON D[facility]AS RN. PT AMBULATED TO BSC AND BED WITH X2 ASSISTANCE. PT IS A/O TO NAME. ASSESSMENT COMPLETED. RESPIRATIONS EVEN AND UNLABORED ON ROOM AIR. LUNG SOUNDS CLEAR. HEART RHYTHM NORMAL WITH TELE IN PLACE. (3220). BOWEL SOUNDS ACTIVE, LBM UNKNOWN. #22G LAC FLUSHED, SITE APPEARS HEALTHY AND PATENT. SKIN INTACT. SCABBED AREA NOTED TO RIGHT SIDE OF HEAD. PT DENIES OF ANY PAINS. PT ORIENTED TO ROOM AND CALL SYSTEM. ALL SAFTEY PRECAUTIONS IN PLACE WITH CALL LIGHT IN REACH. BED ALARM ACTIVE. WILL CONTINUE TO MONITOR
--- NOTE | 2021-06-09 22:08 | NUR ---
PT TRASNPORTED TO MED SURG VIA STRETCHER ON ASSIGNED TELE BOX. PT BELONGINGS TAKEN HOME BY PT DAUGHTER.
[2021-06-09 22:15] VITALS: BP 143/70
--- NOTE | 2021-06-09 22:23 | NUR ---
CALLED RECIEVED FROM DAUGHTER, PASSCODE PROVIDED. DAUGHTER UPDATED ON PT STATUS. DAUGHTER ABLE TO ASSIST PLEATER HAND WITH ADMISSION QUESTIONS.
--- NOTE | 2021-06-10 | NUR ---
PT SLEEPING IN SEMI FOWLERS POSITION. RESPIRATIONS EVEN AND UNLABORED ON ROOM AIR. TELE MONITORING IN PLACE. #22G LAC REMAINS. NO SIGNS OF ANY PAINS OR DISCOMFORTS. ALL SAFTEY PRECAUTIONS ARE IN PLACE WITH CALL LIGHT IN REACH. BED ALARM ACTIVE
--- NOTE | 2021-06-10 03:51 | NUR ---
PT REPOSITIIONED IN BED. REPSIRATIONS EVEN AND UNLABORED. PT REMAINS A/O X1. PT REQUESTING WATER, PT TOLERATED WELL.#22G LAC REMAINS IN PLACE. TELE MONITORING IN PLACE. NO SIGNS OF ANY PAINS OR DISCOMFORTS AT THIS TIME. ALL SAFTEY PRECAUTIONS IN PLACE.BED ALARM ACTIVE. WILL CONTINUE TO MONITOR.
[2021-06-10 04:00] VITALS: BP 125/54
[2021-06-10 05:28] LABS: HEMATOCRIT 32.6 % (37.0-47.0); HEMOGLOBIN 10.8 g/dl (12.0-16.0); IMMATURE GRANULOCYTES 0.3 % (0.0-5.0); MEAN CELL VOLUME 93.9 fL CALC (80.0-100.0); MEAN CORPUSCULAR HGB 31.1 pG CALC (26.0-32.0); MEAN CORPUSCULAR HGB CONC 33.1 g/dL CAL (32.0-36.0); NEUT# 4.02 thou/uL (2.00-7.15); RED BLOOD COUNT 3.47 mill/uL (4.20-5.60); RED CELL DISTRI WIDTH 12.2 % (11.5-15.5)
[2021-06-10 05:58] LABS: ANION GAP 9 (6-22 (CALC)); BUN 14 mg/dL (8-23); BUN/CREATININE RATIO 20 (12-20 (CALC)); CARBON DIOXIDE 30 mmol/l (22-30); CHLORIDE 102 mmol/l (95-108); CREATININE 0.7 mg/dL (0.5-1.0); GFR > 60 ML/MIN (>=60 (CALC)); GFR FOR AFR.AMER. > 60 ML/MIN (>=60 (CALC)); POTASSIUM 3.8 mmol/l (3.5-5.1); SODIUM 136 mmol/l (137-146)
--- NOTE | 2021-06-10 07:34 | NUR ---
PT DOWN FOR MRI VIA STRETCHER WITH MICHELLE PUTNAM. .
--- NOTE | 2021-06-10 09:06 | NUR ---
NORMAN CONSULTED BY DR. ORTIZ AT THIS TIME. PT COMPLAINS OF SHOULDER PAIN. DAUGHTER STATED ITS FROM HER ARTHRITIS. RECCOMENDS MORE FURTHER NORMAN TESTING.
--- NOTE | 2021-06-10 09:30 | NUR ---
ASSESSMENT AND VITALS ALLOWED AT THIS TIME. PT EATING BREAKFAST, NO TROUBLE SWALLOWING. BREATHING EVEN AND UNLABORED. CLIENT SERVICES ANALYST WERE WEAK UPON ASSESSING. PT WHEN SPOKEN TO GIVES DELAYED ANSWERS. 22G LAC FLUSHED WITH NO RESISTANCE. PT IS ALERT TO SELF, ABLE TO TELL ME NAME BUT NOT . FALL/SAFTEY PRECAUTION IN PLACE. TELE MONITOR IN PLACE. CONTINOUS MONITORING PER ED. CALL LIGHT WITHIN REACH
--- NOTE | 2021-06-10 10:16 | NUR ---
CALL RECIEVED FROM TELE MONITOR JOSE. PT ST 170S. EKG ORDERED. MD BOOTH NOTIFIED.
[2021-06-10 11:04] VITALS: BP 140/60
--- NOTE | 2021-06-10 12:30 | NUR ---
PT EATING LUNCH AT THIS TIME. ALERT TO PERSON. ABLE TO TELL ME NAME BUT NOT MONTH. FALL/SAFTEY PRECAUTION IN PLACE. CALL LIGHT WITHIN REACH. NO DISTRESS NOTED. BED ALARM ACTIVATED.
--- NOTE | 2021-06-10 16:08 | NUR ---
NIH SCALE PERFORMED AT THIS TIME WITH A SCORE OF 1. PT COMPLAINS OF RIGHT SHOULDER PAIN. AND HEADACHE. DAUGHTER SAYS RSHOULDER PAIN IS FROM ARTHRITIS. MD BOOTH NOTIFIED. FALL/SAFETY PRECAUTIONS IN PLACE. CALL LIGHT WITHIN REACH. ENCOURAGED PT TO USE CALL LIGHT. REORIENTATED PT TO CALL LIGHT.
[2021-06-10 17:02] VITALS: BP 173/58
--- NOTE | 2021-06-10 17:36 | NUR ---
BP: 170/88. MD BOOTH NOTIFIED.
[2021-06-10 19:00] VITALS: BP 139/65
[2021-06-11] VITALS: BP 129/75
--- NOTE | 2021-06-11 00:08 | NUR ---
PT SLEEPING SOUNFLY, UNDISTURBED BY WRITTER. CALL LIGHT WITHIN REACH. BED ALARM ACTIVATED FOR SAFETY.
--- NOTE | 2021-06-11 00:15 | NUR ---
BED ALARM SET OFF, PT ASKING TO USE THE RESTROOM, WRITTER ASSITED PT 1X MINIMUM ASSIST TO BSC. 150ML OR CLEAR YELLOW URINE OUT. PT ASSITED BACK TO BED, BED ALARM ACTIVATED FOR SAFETY, PHOTO WITH PATIENT IDENTIFIERS ON HEAD OF BED. CALL LIGHT AND BEDSIDE TABLE WITHIN REACH.
--- NOTE | 2021-06-11 02:33 | NUR ---
PATIENT REQUESITNG SOMETHING FOR A HEADACHE. TYLENOL TO FOLLOW.
[2021-06-11 05:04] VITALS: BP 145/68
[2021-06-11 05:34] LABS: HEMATOCRIT 31.6 % (37.0-47.0); HEMOGLOBIN 10.7 g/dl (12.0-16.0); IMMATURE GRANULOCYTES 0.2 % (0.0-5.0); MEAN CELL VOLUME 92.9 fL CALC (80.0-100.0); MEAN CORPUSCULAR HGB 31.5 pG CALC (26.0-32.0); MEAN CORPUSCULAR HGB CONC 33.9 g/dL CAL (32.0-36.0); NEUT# 3.71 thou/uL (2.00-7.15); RED BLOOD COUNT 3.4 mill/uL (4.20-5.60)
--- NOTE | 2021-06-11 06:21 | NUR ---
PATIENT SLEEPING SOUNDLY, UNDISTRURNED BY WRITTER. CALL LIGHT AND BEDSIDE TABEL WITHIN REACH, BED ALARM ACTIVATED FOR SAFETY.
[2021-06-11 06:25] LABS: ANION GAP 10 (6-22 (CALC)); BUN 16 mg/dL (8-23); BUN/CREATININE RATIO 20 (12-20 (CALC)); CARBON DIOXIDE 27 mmol/l (22-30); CHLORIDE 104 mmol/l (95-108); CREATININE 0.8 mg/dL (0.5-1.0); GFR > 60 ML/MIN (>=60 (CALC)); GFR FOR AFR.AMER. > 60 ML/MIN (>=60 (CALC)); POTASSIUM 4.1 mmol/l (3.5-5.1); SODIUM 136 mmol/l (137-146)
[2021-06-11 07:58] VITALS: BP 123/54
--- NOTE | 2021-06-11 08:36 | NUR ---
RECEIVE REPORT FROM FIONA ALEXANDER. PATIENT STABLE NO RESPIRATORY DISTRESS, NO PAIN AT THIS TIME. EDUCATED PATIENT ABOUT MADICATION, PLAN OF CARE FOR TODAY. PATIENT REPORT UNDERSTAND.
[2021-06-11 10:28] VITALS: BP 108/55
[2021-06-11] MEDS ORDERED: [UNRECOGNIZED DRUG - OTHER] OU (10:35)
[2021-06-11] MEDS ORDERED: MEDIHONEY WOUND TOP (10:37)
[2021-06-11] MEDS ORDERED: SANTYL250 UNIT/G TOP (10:39)
[2021-06-11] MEDS ORDERED: DICLOFENAC SODIUM1 % TOP (10:39)
[2021-06-11] MEDS ORDERED: TRAMADOL HYDROC50 M1 PO (10:43)
--- NOTE | 2021-06-11 14:40 | NUR ---
PATIENT STABLE AT THIS TIME. RESTING IN BED
[2021-06-11 15:12] VITALS: BP 139/64
[2021-06-11 18:47] VITALS: BP 132/49
--- NOTE | 2021-06-11 21:37 | NUR ---
PHYSICAL ASSESMENT COMPLETE. PT C/O IV DISCOMFORT. FLUSHED AND REWRAPPED SITE.P PT STATES MUCH BETTER. SCHEDULED MEDICATIONS AND PRN MEDICATION ADMINISTERED, SEE E-MAR. PT DENIES ANY NEEDS AT THIS TIME. PLAN OF CARE REVIEWED, PT DENIES QUESTIONS, VERBALIZES UNDERSTANDING. ITEMS WITHIN REACH, BED LOCKED IN LOW POSITION W/ BEDRAILS UP X2. CALL HERNANDEZ WITHIN REACH, AGREES TO CALL PRN.
[2021-06-12] VITALS: BP 156/72
[2021-06-12 04:00] VITALS: BP 133/61
--- NOTE | 2021-06-12 04:06 | NUR ---
PT RESTING IN BED, NO SIGNS OF DISTRESS NOTED, RESP EVEN AND UNLABORED. PT VOICES NO NEEDS OR COMPLAINTS AT THIS TIME. CALL LIGHT IN REACH, CONTINUE TO MONITOR.
--- NOTE | 2021-06-12 04:58 | NUR ---
PT C/O SHOULDER PAIN.PRN PAIN MEDICATION GIVEN.WILL CONTINUE TO MONITOR.
[2021-06-12 06:06] LABS: HEMOGLOBIN 10.6 g/dl (12.0-16.0); MEAN CELL VOLUME 95.5 fL CALC (80.0-100.0); MEAN CORPUSCULAR HGB 31.6 pG CALC (26.0-32.0); MEAN CORPUSCULAR HGB CONC 33.1 g/dL CAL (32.0-36.0); RED BLOOD COUNT 3.35 mill/uL (4.20-5.60); RED CELL DISTRI WIDTH 12.3 % (11.5-15.5)
[2021-06-12 06:20] LABS: ANION GAP 8 (6-22 (CALC)); BUN 17 mg/dL (8-23); BUN/CREATININE RATIO 20 (12-20 (CALC)); CARBON DIOXIDE 26 mmol/l (22-30); CHLORIDE 108 mmol/l (95-108); CREATININE 0.8 mg/dL (0.5-1.0); GFR > 60 ML/MIN (>=60 (CALC)); GFR FOR AFR.AMER. > 60 ML/MIN (>=60 (CALC)); MAGNESIUM 2.1 mg/dL (1.6-2.3); SODIUM 138 mmol/l (137-146)
--- NOTE | 2021-06-12 06:45 | NUR ---
REPORT RECEIVED FROM RENEE ALEXANDER. CARE ASSUMED.
[2021-06-12 07:00] VITALS: BP 161/71
--- NOTE | 2021-06-12 07:00 | NUR ---
PATIENT RESTING IN BED AWAKE AND WATCHING TV. PATIENT IS ALERT AND ORIENTED TO SELF ONLY. AM ASSESSMENT COMPLETED AT THIS TIME. IV PATENT X1. BED ALARM IN PLACE FOR PATIENT SAFETY. CALL LIGHT IN REACH. WILL CONTINUE TO MONITOR.
--- NOTE | 2021-06-12 10:35 | NUR ---
PHYSICIAN AT BEDSIDE.
[2021-06-12 11:45] VITALS: BP 121/51
--- NOTE | 2021-06-12 11:47 | NUR ---
PATIENT RESTING IN BED. NOON MEAL SERVED AT THIS TIME. CALL LIGHT IN REACH. WILL CONTINUE TO MONITOR.
--- NOTE | 2021-06-12 14:11 | NUR ---
Discharge instructions given. Patient verbalizes understanding of same. Discharged in stable condition via Wheelchair to [facility] with staff. All belongings sent with pt.
--- NOTE | 2021-06-12 14:13 | NUR ---
S- pt oriented to name, month and day, not year. Stated I do not remember how old I am. 1- Pt resting in bed, c/o bilateral shoulder pain. She performed AROM ex to BLE in supine 2 x 10 reps including heelslide, hip abd/add, SAQ ankle DF/PF with verbal and physical cue to correctly execute exercise. Pt rolled in bed and moved to sitting with SBA. She had difficulty with motor planning. She was able to ambulate x 10' and then 6' with CGA/min assist. Transfer to and from chair with CGA. BP 140/58, 02sats 94-95%, HR 64-69. Time spent with pt 40 min. A- [facility] P- Will follow for motor planning, gait and ther ex.
== END 2021-06-12 14:11 | disposition home health service (06) ==
LOC: ED 14:26 → ED-I 18:16 → ED 18:32 → MS2 18:33
PROVIDERS: Family Medicine; Nurse Practitioner; ADMIT Hospitalist; ATTEND Hospitalist
DX: R41.0 Disorientation, unspecified (principal); R53.1 Weakness; R50.9 Fever, unspecified; R47.81 Slurred speech; I10 Essential (primary) hypertension; F03.90 Unspecified dementia, unspecified severity, without behavioral disturbance, psychotic disturbance, mood disturbance, and anxiety; I48.91 Unspecified atrial fibrillation; F32.A Depression, unspecified; F41.9 Anxiety disorder, unspecified; R82.79 Other abnormal findings on microbiological examination of urine; Z20.822 Contact with and (suspected) exposure to COVID-19
CPT/HCPCS: J1650; Q9967

== ENCOUNTER 2021-10-03 06:08 | Emergency (ER) | payer MEDICARE, OTHER ==
[~2021-10-03] VITALS: Ht 157.5 cm; Wt 70.0 kg
[2021-10-03] VITALS (10 sets, daily range): BP systolic 105–142; BP diastolic 50–97
[~2021-10-03 06:08] MED LIST changes: +DICLOFENAC SODIUM1 % TOP; +MEDIHONEY WOUND TOP; +SANTYL250 UNIT/G TOP; +TRAMADOL HYDROC50 M1 PO; +[UNRECOGNIZED DRUG - OTHER] OU
[2021-10-03] MEDS ORDERED: NAPROXEN500 MG PO (08:57)
== END 2021-10-03 09:28 ==
LOC: ED 06:08
DX: S43.491A Other sprain of right shoulder joint, initial encounter (principal); Z96.611 Presence of right artificial shoulder joint